=== PATIENT | male | born 1985 | race African-American/Black ===

== ENCOUNTER 2023-08-13 14:13 | Emergency (ER) | payer OTHER ==
[~2023-08-13] VITALS: Ht 175.3 cm; Wt 100.0 kg
[2023-08-13 14:24] VITALS: BP 143/85; PULSE 61; RESP 18; TEMP 98.7; O2SAT 99
[2023-08-13] MEDS ORDERED: NAPR-1129 MT (16:14)
[2023-08-13] MEDS ORDERED: LIDO700A15 TP (16:14)
== END 2023-08-13 16:29 | disposition home or self-care (01) ==
LOC: ER 14:13
DX: G89.11 Acute pain due to trauma (principal); V98.8XXA Other specified transport accidents, initial encounter; Y93.89 Activity, other specified; Y92.89 Other specified places as the place of occurrence of the external cause; Y99.8 Other external cause status
CPT/HCPCS: 71111; 99283